=== PATIENT | male | born 1965 | race Caucasian/White ===

== ENCOUNTER 2021-02-09 13:30 | Outpatient (CLI) | payer MEDICARE, SELFPAY ==
--- NOTE | 2021-02-09 13:30 | XR_ITS ---
WS: [id number] PROCEDURE: XR chest 2V* [id number] CLINICAL INFORMATION: SOB COMPARISON: None. FINDINGS: Heart: Normal cardiac silhouette. Sternotomy with mediastinal clips. AVR. Lungs: Elevation left hemidiaphragm with air-fluid level in the stomach.. Mild chronic emphysematous changes. Linear atelectasis/fibrosis left lower lobe. Bones: Normal visualized bony structures. XR/XR chest 2V* [id number] IMPRESSION: 1. Elevation left hemidiaphragm with air-fluid level in the stomach. 2. Mild chronic emphysematous changes. No acute pulmonary infiltrates. 3. Sternotomy with mediastinal clips and aVR.
== END 2021-02-09 13:31 | disposition home or self-care (01) ==
PROVIDERS: Visit Provider Family Medicine
DX: R06.02 Shortness of breath (principal)
CPT/HCPCS: 71046

== ENCOUNTER → 2021-03-24 14:49 | Outpatient (BNVA) | payer MEDICARE, SELFPAY | PROVIDERS: Visit Provider Internal Medicine Cardiovascular Disease | DX: Z01.812 Encounter for preprocedural laboratory examination (principal); Z20.822 Contact with and (suspected) exposure to COVID-19 | CPT/HCPCS: 87635 ==

== ENCOUNTER 2021-03-30 09:18 | Outpatient (CLI) | payer MEDICARE, SELFPAY ==
--- NOTE | 2021-03-30 09:51 | PFTS_ITS ---
Date of Study:03/30/21 Date of Dictation: MECHANICS: Forced vital capacity (FVC) is reduced. Forced expiratory volume in one second (FEV1) is reduced. FEV1/FVC is normal. FLOW VOLUME LOOP: Narrow. LUNG VOLUMES: Total lung capacity (TLC) is reduced. Residual volume (RV) is reduced. DIFFUSING CAPACITY FOR CARBON MONOXIDE: Moderately reduced. INTERPRETATION: The postbronchodilator spirometry is consistent with moderately severe restriction. There is a significant postbronchodilator response. Lung volumes are consistent with moderately severe restrictive lung disease. Gas exchange (DLCO) is moderately reduced. The constellation of findings could be suggestive of interstitial lung disease. MTDD
== END 2021-03-30 09:19 | disposition home or self-care (01) ==
LOC: RT 09:20
PROVIDERS: PCP Family Medicine; Visit Provider Internal Medicine Cardiovascular Disease
DX: R06.00 Dyspnea, unspecified (principal)
CPT/HCPCS: 94060; 94726; 94729; J7611

== ENCOUNTER 2021-04-13 12:55 | Outpatient (CLI) | payer MEDICARE, SELFPAY ==
--- NOTE | 2021-04-13 12:45 | USCV_ITS ---
Felipe Hill Age: 55 Gender: M : 1965 Exam Date: 04/13/2021 13:17 Ordering Phys: Liliane Prajapati DO Technologist: Exam Location: [facility] Indication: HISTORY: PROCEDURES: Left duplex Venous Insufficiency study of the Deep and Superficial systems was carried out according to normal protocol with the patient in supine positon for deep system and dependent position for the superficial system. FINDINGS: All deep veins demonstrated compressibility without evidence of intraluminal thrombus or increased echogenicity. Spectral analysis of Doppler signals demonstrates normal response to compression maneuvers indicating patency without obstruction. Reflux determinations were made with the patient in the dependent position, the weight being on the contralateral leg. Vein measurements and reflux times are listed below were applicable. SIGNIFICANT LT LEG GSAPH INSUFFICIENCY GOOD CANADATE FOR ABLATION. CONCLUSIONS 1. No evidence of DVT in the above-mentioned identifiable veins on the left side. 2. Significant venous reflux of greater than 500 ms were noted at the distal and below-knee greater saphenous vein segments on the left side. These venous segments are measuring 0.38 and 0.45 cm in diameter and at a depth of more than 1 cm from the surface. Dr Constanza Guerra MD [facility] (Electronically Signed) Final Date: 14 April 2021 08:48 S
== END 2021-04-13 12:56 | disposition home or self-care (01) ==
LOC: RAD 13:00
PROVIDERS: PCP Family Medicine; Visit Provider Family Medicine
DX: I83.892 Varicose veins of left lower extremity with other complications (principal)
CPT/HCPCS: 93971

== ENCOUNTER 2021-04-14 12:54 | Outpatient (CLI) | payer MEDICARE, SELFPAY ==
[2021-04-14 14:03] LABS: Alanine Aminotransferase 20 U/L (0-41); Albumin Level 4.4 g/dL (3.5-5.2); Alkaline Phosphatase 71 IU/L (40-130); Anion Gap 10.5 (5-19); Aspartate Amino Transferase 21 U/L (0-40); Blood Urea Nitrogen 17 mg/dL (6-20); Calcium 8.8 mg/dL (8.5-10.5); Carbon Dioxide 28 mmol/L (22-29); Chloride 104 mmol/L (98-107); Globulin 2.4 g/dL (1.3-4.6); Glomerular Filtration Rate 100.7 mL/min (90-130); Glucose 86 mg/dL (65-115); Osmolality Calculated 287 mOsm/kg (285-295); Potassium 4.5 mmol/L (3.5-5.1); Sodium 138 mmol/L (136-145); Total Bilirubin 0.7 mg/dL (0.15-1.2); Total Protein 6.8 g/dL (6.6-8.7)
[2021-04-14 14:16] LABS: Erythrocyte Sedimentation Rate 13 mm/hr (0-10)
[2021-04-15 13:47] LABS: Anti-Double Strand DNA AB <1 IU/mL; Centromere B Antibody <1.0 NEG AI (<1.0 NEG); Cyclic Citrullinated Peptide <16 UNITS; JO-1 Antibody <1.0 NEG AI (<1.0 NEG); SS A Ro Sjogrens Antibody <1.0 NEG AI (<1.0 NEG); SS-B/LA IGG <1.0 NEG AI (<1.0 NEG); Sm/RNP Antibody <1.0 NEG AI (<1.0 NEG); Smith Antibody <1.0 NEG AI (<1.0 NEG)
[2021-04-15 17:39] LABS: Alternaria Alternata (M6) Ige <0.10 kU/L; Alternaria Class 0; Bermuda Class 0; Bermuda Grass (G2) Ige <0.10 kU/L; Cat Dander (E1) Ige <0.10 kU/L; Cat Dander Class 0; Common Ragweed (Short) (W1) Ig <0.10 kU/L; D. Farinae Class 0; Dermatophagoides Class 0; Dermatophagoides Farinae (D2) <0.10 kU/L; Dermatophagoides Pteronyssinus <0.10 kU/L; Dog Dander (E5) Ige <0.10 kU/L; Dog Dander Class 0; Elm (T8) Ige <0.10 kU/L; Elm Class 0; English Plantain (W9) Ige <0.10 kU/L; English Plantain Class 0; House Dust (Greer) (H1) Ige <0.10 kU/L; House Dust (Hollister- Stier) <0.10 kU/L; House Dust Class 0; Immunoglobulin E 17 kU/L (<OR=114); Immunoglobulin E 18 kU/L (<OR=114); Johnson Grass (G10) Ige <0.10 kU/L; Johnson Grass Cl 0; June Grass Class 0; June Grass(Kentucky Blue) (G8) <0.10 kU/L; Lamb'S Quarters (Goose Foot) <0.10 kU/L; Lamb'S Quarters Class 0; Maple (Box Elder) (T1) Ige <0.10 kU/L; Maple Class 0; Meadow Fescue (G4) Ige <0.10 kU/L; Meadow Fescue Class 0; Mucor Racemosus Class 0; Oak (T7) Ige <0.10 kU/L; Oak Class 0; Orchard Grass (Cocksfoot) (G3) <0.10 kU/L; Penicillium Class 0; Penicillium Notatum (M1) Ige <0.10 kU/L; Perennial Rye Grass (G5) Ige <0.10 kU/L; Perennial Rye Grass Class 0; Ragweeed Class 0; Rough Marsh Elder (W16) Ige <0.10 kU/L; Rough Marsh Elder Class 0; Sweet Vernal Class 0; Sweet Vernal Grass (G1) Ige <0.10 kU/L; Timothy Grass (G6) Ige <0.10 kU/L; Timothy Grass Class 0
[2021-04-16 23:02] LABS: Aspergillus Fumigatus, Igg Ab, 16.6 mg/L (<=102)
== END 2021-04-14 12:55 | disposition home or self-care (01) ==
LOC: LAB 12:58
PROVIDERS: PCP Family Medicine; Visit Provider Internal Medicine Pulmonary Disease
DX: J98.4 Other disorders of lung (principal); R06.00 Dyspnea, unspecified; J45.909 Unspecified asthma, uncomplicated
CPT/HCPCS: 36415; 80053; 82785; 85651; 86003; 86140; 86225; 86235; 86431

== ENCOUNTER 2021-04-19 10:37 | Outpatient (CLI) | payer MEDICARE, SELFPAY ==
--- NOTE | 2021-04-19 10:45 | CT_ITS ---
WS: [id number] HIGH-RESOLUTION CT CHEST TECHNIQUE: High-resolution Noncontrast CT of the chest with coronal and sagittal reformatted images. Inspiratory, expiratory, prone imaging CLINICAL INFORMATION: interstitial lung disease COMPARISON: None. DLP: 1824.[address] scans at [facility] use at least one of these dose optimization techniques: automat ed exposure control; mA and/or kV adjustment per patient size (includes targeted exams where dose is matched to clinical indication); or iterative reconstruction. FINDINGS: Elevation left hemidiaphragm. Sternotomy. Prior aVR. Aortic calcification. Mediastinal clips. Normal caliber thoracic aorta. No mediastinal or hilar lymphadenopathy. No axillary lymphadenopathy. Adrenal glands are normal. Surgical clips along the GE junction. Mild chronic emphysematous change. Slight subsegmental atelectasis in the lingula and left lower lobe . No focal consolidation or pleural fluid. A few noncalcified tiny nodules in the right upper lobe an d left lower lobe. These measure approximately 2 to 3 mm. No evidence of interstitial lung disease. N o subpleural honeycombing. No evidence of interstitial fibrosis. Bronchiectasis left lower lobe. No s ignificant air trapping on the expiratory imaging. CT/CT chest wo con [id number] IMPRESSION: 1. Mild chronic emphysematous changes. 2. No evidence of interstitial lung disease. No subpleural honeycombing or int erstitial fibrosis. 3. Slight linear atelectasis left lower lobe. 4. No mediastinal or hilar lymphadenopathy. 5. A few tiny subcentimeter pulmonary nodules described above. Recommend 12 mo nth follow-up.
== END 2021-04-19 10:38 | disposition home or self-care (01) ==
PROVIDERS: PCP Family Medicine; Visit Provider Internal Medicine Pulmonary Disease
DX: J84.9 Interstitial pulmonary disease, unspecified (principal); R91.8 Other nonspecific abnormal finding of lung field; J98.11 Atelectasis
CPT/HCPCS: 71250

== ENCOUNTER 2021-06-09 15:57 | Outpatient (CLI) | payer MEDICARE, SELFPAY ==
--- NOTE | 2021-06-09 16:30 | XR_ITS ---
WS: [id number] HAND LEFT TECHNIQUE: 3 views of the left hand CLINICAL INFORMATION: rule out psoriatric arthritis COMPARISON: None. FINDINGS: Ulna deviation at the fifth MCP joint with flexion contracture deformity fifth DIP. Joint space narro wing fifth DIP. No significant erosive changes. No periarticular erosions. Normal metacarpals. Mild d egenerative narrowing radiocarpal joint. IMPRESSION: 1. Ulnar deviation fifth MCP with swan-neck contracture deformity fifth DIP 2. No significant erosive changes. No periarticular erosions. 3. Mild degenerative narrowing radiocarpal joint.
--- NOTE | 2021-06-09 16:30 | XR_ITS ---
WS: [id number] HAND RIGHT TECHNIQUE: 3 views of the right hand CLINICAL INFORMATION: rule out psoratiatic arthritis COMPARISON: None. FINDINGS: Ulna deviation at the MCP joints. No significant erosive changes. Mild IP joint narrowing f ifth DIP . Mild degenerative narrowing at the radiocarpal joint. Otherwise normal visualized carpal b ones. . XR/XR hand RT min 3V* [id number] IMPRESSION: 1. Ulna deviation at the second through fifth MCP joints. 2. No erosive changes. 3. IP joint narrowing fifth DIP.
== END 2021-06-09 15:58 | disposition home or self-care (01) ==
PROVIDERS: PCP Family Medicine; Visit Provider Internal Medicine Pulmonary Disease
DX: M21.241 Flexion deformity, right finger joints (principal); M21.242 Flexion deformity, left finger joints
CPT/HCPCS: 73130

== ENCOUNTER 2022-02-15 07:49 | Outpatient (CLI) | payer MEDICARE, SELFPAY ==
--- NOTE | 2022-02-15 08:00 | MR_ITS ---
WS: [id number] MRI BRAIN WITHOUT CONTRAST HISTORY: NEW PERSISTENT DAILY HEADACHE COMPARISON: None available. TECHNIQUE: Diffusion imaging, multiplanar T1, T2 and FLAIR imaging obtained. No evidence for acute infarct or hemorrhage. Romero-white matter differentiation is normal. Very minimal atrophy and chronic small vessel ischemic disease. No prior large territory infarct. No hemorrhage. Ventricles and extra-axial spaces are normal. No inferior displacement of cerebellar tonsils. The sella turcica and pituitary gland are unremarkabl e. Dural venous sinuses and [place] demonstrate no abnormality on this unenhanced studies. Paranasal sinuses: Mild diffuse periosteal thickening in all sinuses. No air-fluid levels. Mastoid air cells: Normal. Calvarium and scalp: 10 mm nodule in the RIGHT occipital bone closely follows fluid on all sequences. This is just inferior to the RIGHT transverse sinus. MR/MR head wo con* [id number] IMPRESSION: 1. No acute infarct. 2. Mild atrophy and very minimal small vessel ischemic disease. 3. 10 mm RIGHT occipital bone lesion. This is probably benign. For further janet luation consider CT of the brain as this will better evaluate the bone structur es. 4. No hemorrhage. 5. Mild diffuse sinus mucosal thickening.
--- NOTE | 2022-02-15 08:00 | MR_ITS ---
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 TECHNIQUE: 3-D MR angiography is performed of the [place]. All images are reviewed including source images. Distal vertebral and basilar arteries are intact with no significant stenosis or plaque. RIGHT verteb ral artery is slightly dominant. Posterior cerebral arteries are normal course and caliber. Posterior communicating arteries are both patent although very small. Intracranial portion of the internal carotid arteries are normal course and caliber. No significant a therosclerosis, stenosis or aneurysm identified. Middle and anterior cerebral arteries are both paten t with no significant disease. Anterior communicating artery is also normal. MR/MR angio head wo con [id number] IMPRESSION: 1. No aneurysms or occlusions. 2. Small caliber but patent distal LEFT vertebral artery.
== END 2022-02-15 07:50 | disposition home or self-care (01) ==
LOC: RAD 07:50
PROVIDERS: PCP Family Medicine; Visit Provider Family Medicine
DX: G44.52 New daily persistent headache (NDPH) (principal); G44.83 Primary cough headache; Z79.01 Long term (current) use of anticoagulants; I71.01 Dissection of thoracic aorta; Q87.40 Marfan syndrome, unspecified; M89.9 Disorder of bone, unspecified
CPT/HCPCS: 70544; 70551

== ENCOUNTER 2022-02-24 07:42 | Outpatient (CLI) | payer MEDICARE, SELFPAY ==
--- NOTE | 2022-02-24 08:00 | USCV_ITS ---
Felipe Hill Age: 56 Gender: M : 1965 Exam Date: 02/24/2022 08:03 Ordering Phys: Chris Overton MD Technologist: URI [place] [facility] [place]: Dyspnea on exertion, Assess LV function BP: 134 / 87 HR: 57 Rhythm: Sinus Technical Quality: Suboptimal MEASUREMENTS (Male / Female) Normal Values 2D ECHO LV Diastolic Diameter PLAX 4.7 cm 4.2 - 5.9 / 3.9 - 5.3 cm LV Systolic Diameter PLAX 3.0 cm IVS Diastolic Thickness 0.7 cm 0.6 - 1.0 / 0.6 - 0.9 cm IVS Systolic Thickness 1.0 cm LVPW Diastolic Thickness 0.8 cm 0.6 - 1.0 / 0.6 - 0.9 cm LVPW Systolic Thickness 1.0 cm RV Chamber Size 2.6 cm LVOT Diameter 2.0 cm LV Ejection Fraction 2D Teich 65.2 % LV Ejection Fraction MOD 2C 56.3 % LV Ejection Fraction 2C AL 56.5 % LA Diameter 2.8 cm LA Width 3.1 cm LA Height 3.5 cm RA Width 3.4 cm RA Height 3.5 cm Aorta at Sinotubular Diameter 2.2 cm M-MODE Aortic Annulus Diameter 2.6 cm LA Ao Ratio MM 0.9 MV E Point Septal Separation 0.5 cm DOPPLER AV Peak Velocity 186.0 cm/s LVOT Peak Velocity 132.0 cm/s AV Area Cont Eq vti 2.9 cm squared AV Area Cont Eq pk 2.3 cm squared MV Area PHT 5.0 cm squared Mitral E to A Ratio 1.7 MV E' Velocity 50.5 cm/s Mitral E to MV E' Ratio 11.3 Mitral E to LV E' Lateral Ratio 10.3 Mitral E to LV E' Septal Ratio 12.5 TR Peak Velocity 295.8 cm/s TR Peak Gradient 35.0 mmHg TV Peak E Velocity 53.0 cm/s Right Atrial Pressure 3.0 mmHg Pulmonary Artery Systolic Pressu 38.0 mmHg PV Peak Velocity 93.0 cm/s RV Acceleration Time 0.2 s RV Ejection Time 0.4 s RV AcT/ET 0.5 FINDINGS Left Ventricle Normal left ventricular size and systolic function, EF 61 %. No regional wall motion abnormalities. Right Ventricle The right ventricle is normal in size and function. Right Atrium The right atrium is normal in size. Left Atrium The left atrium is normal in size. Mitral Valve Mild mitral annular calcification. Aortic Valve Thickened aortic valve. Tricuspid Valve Trace tricuspid valve regurgitation. Estimated pulmonary artery peak systolic pressure of 38 mmHg. Pulmonic Valve Trace pulmonary valve regurgitation. Pericardium Normal pericardium without effusion. Aorta Normal ascending aorta dimension. CONCLUSIONS Normal left ventricular size and systolic function, EF 61 %. No regional wall motion abnormalities. Thickened aortic valve. Mild mitral annular calcification. Trace tricuspid valve regurgitation. Estimated pulmonary artery peak systolic pressure of 38 mmHg. Trace pulmonary valve regurgitation. There is no pericardial effusion. There are no intracardiac masses. No previous study is available for comparison. Dr Constanza Guerra MD [facility] (Electronically Signed) Final Date: 25 February 2022 08:46 S
--- NOTE | 2022-02-24 10:47 | PFTS_ITS ---
Date of Study:02/24/22 Date of Dictation: MECHANICS: Forced vital capacity (FVC) is reduced. Forced expiratory volume in one second (FEV1) is reduced. FEV1/FVC is normal. FLOW VOLUME LOOP: Narrow. LUNG VOLUMES: Total lung capacity (TLC) is reduced. Residual volume (RV) is reduced. DIFFUSING CAPACITY FOR CARBON MONOXIDE: Mildly reduced. INTERPRETATION: The postbronchodilator spirometry is consistent with moderate restriction. There is no significant postbronchodilator response. Lung volumes are consistent with moderate restriction. Gas exchange (DLCO) is mildly reduced. MTDD
== END 2022-02-24 07:43 | disposition home or self-care (01) ==
PROVIDERS: PCP Family Medicine; Visit Provider Internal Medicine Pulmonary Disease
DX: R06.00 Dyspnea, unspecified (principal); Z95.2 Presence of prosthetic heart valve; J98.4 Other disorders of lung; I08.3 Combined rheumatic disorders of mitral, aortic and tricuspid valves
CPT/HCPCS: 93306; 94060; 94726; 94729; J7611

== ENCOUNTER → 2022-03-10 10:07 | Outpatient (BNVA) | payer MEDICARE, SELFPAY | PROVIDERS: PCP Family Medicine; Visit Provider Internal Medicine Pulmonary Disease | DX: J45.909 Unspecified asthma, uncomplicated (principal); R94.2 Abnormal results of pulmonary function studies; Q87.40 Marfan syndrome, unspecified; J98.4 Other disorders of lung; J98.6 Disorders of diaphragm; M21.241 Flexion deformity, right finger joints; M21.242 Flexion deformity, left finger joints | CPT/HCPCS: 99214 ==

== ENCOUNTER 2022-03-16 08:31 | Outpatient (CLI) | payer MEDICARE, SELFPAY ==
--- NOTE | 2022-03-16 09:02 | CT_ITS ---
WS: [id number] CT HEAD WITH AND WITHOUT CONTRAST HISTORY: ABNORMAL FINDINGS ON MRI OF BRAIN TECHNIQUE: Noncontrast 2.5 mm axial images obtained from the vertex to the skull base. Additional janel ging performed at 2.5 mm axial images status post IV contrast. Bone and soft tissue windows are revie wed. All CT scans at [facility] use at least one of these dose optimization techniques: autom ated exposure control; mA and/or kV adjustment per patient size (includes targeted exams where dose i s matched to clinical indication); or iterative reconstruction. CONTRAST: Omnipaque 350; 95 mL IV. DLP: 2278.29 mGy.cm COMPARISON: MRI 02/15/2022 No acute intracranial hemorrhage, edema or midline shift. Very mild atrophy and small vessel ischemic disease. Prior lacunar infarct versus perivascular space RIGHT basal ganglia. On the postcontrast images there are no enhancing masses. No vascular malformati ons. Ventricles are normal size. Dural venous sinuses are normally enhancing. Just to the RIGHT of the torcula is an area of low atten uation which extends into the calvarium. There is a lytic area in the calvarium corresponding to the area on the recent MRI. Lytic skull lesion measures 9 mm and is very closely associated with the talavera sverse sinus. There is no significant amount of enhancement identified. No occlusions. Very small and hypoplastic LEFT A1 segment. This may be congenital. LEFT M1 segment is also small caliber but is patent. Paranasal sinuses as visualized: Clear. Mastoid air cells: Clear. Calvarium and scalp: No skull fracture. Again noted is the lytic area with scalloping and destruction of the internal table involving the RIGHT occipital lobe. Closely associated with the transverse sin us. CT/CT head wo/w con [id number] IMPRESSION: 1. No enhancing soft tissue mass associated with the RIGHT occipital lesion de scribed on prior MRI the brain. This is a lytic lesion with interruption the lo ss of the inner table of the RIGHT occipital bone. Closely associated with the transverse sinus. Favor this is probably an arachnoid granulation ectatic has e xtended intracranially or benign venous irwin. These are both benign findings an d probably asymptomatic. 2. Mild atrophy and small vessel ischemic disease. 3. 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
[2022-03-16] MEDS: iohexol 350 mg/mL 100 mL Btl IV (09:31)
== END 2022-03-16 08:32 | disposition home or self-care (01) ==
LOC: RAD 08:39
PROVIDERS: PCP Family Medicine; Visit Provider Family Medicine
DX: R90.89 Other abnormal findings on diagnostic imaging of central nervous system (principal); R93.0 Abnormal findings on diagnostic imaging of skull and head, not elsewhere classified
CPT/HCPCS: 70470

== ENCOUNTER → 2022-06-13 11:15 | Outpatient (BNVA) | payer MEDICARE, SELFPAY | PROVIDERS: PCP Family Medicine; Visit Provider Internal Medicine Pulmonary Disease | DX: J45.909 Unspecified asthma, uncomplicated (principal); R94.2 Abnormal results of pulmonary function studies; Q87.40 Marfan syndrome, unspecified; J98.4 Other disorders of lung; R06.00 Dyspnea, unspecified; J98.6 Disorders of diaphragm; M25.841 Other specified joint disorders, right hand; M25.842 Other specified joint disorders, left hand | CPT/HCPCS: 99214 ==

== ENCOUNTER → 2022-06-17 11:40 | Outpatient (BNVA) | payer MEDICARE, SELFPAY | PROVIDERS: PCP Family Medicine; Visit Provider Internal Medicine | DX: Q87.40 Marfan syndrome, unspecified (principal); J45.909 Unspecified asthma, uncomplicated; R94.2 Abnormal results of pulmonary function studies; J98.4 Other disorders of lung; J98.6 Disorders of diaphragm; I27.20 Pulmonary hypertension, unspecified; Z95.2 Presence of prosthetic heart valve | CPT/HCPCS: 99214 ==

== ENCOUNTER 2022-06-27 07:25 | Outpatient (CLI) | payer MEDICARE, SELFPAY ==
[2022-06-23 13:22] LABS: Eosinophils # 0.2 10^3/uL (0.0-0.8); Eosinophils % 5.8 %; Hematocrit 37.6 % (42.0-52.0); Hemoglobin 12.6 g/dL (11.7-16.6); Lymphocytes # 1.2 10^3/uL (0.8-4.8); Lymphocytes % 28.2 %; Mean Corpuscular HGB Conc 33.5 g/dL (30.0-36.0); Mean Corpuscular Hemoglobin 30.8 pg (28.0-34.0); Mean Corpuscular Volume 91.9 fl (80-94); Mean Platelet Volume 9.3 fL (7.4-10.4); Monocytes # 0.5 10^3/uL (0.2-0.9); Monocytes % 11.2 %; Neutrophils # 2.23 10^3/uL (1.8-7.7); Neutrophils % 54.3 %; Nucleated Red Blood Cells % 0 %; Platelet Count 186 10^3/cmm (130-400); Red Blood Count 4.09 10^6/uL (4.1-5.3); Red Cell Distribution Width 11.3 % (12.1-15.1); White Blood Count 4.1 10^3/uL (4.0-10.0)
[2022-06-23 13:33] LABS: INR 2.27 (0.83-1.21); Prothrombin Time (Patient) 25.4 Seconds (12.0-15.1)
[2022-06-23 13:45] LABS: Anion Gap 10.9 (5-19); Blood Urea Nitrogen 20 mg/dL (6-20); Calcium 8.9 mg/dL (8.5-10.5); Carbon Dioxide 29 mmol/L (22-29); Chloride 104 mmol/L (98-107); Glomerular Filtration Rate 100.4 mL/min (90-130); Glucose 92 mg/dL (65-115); Osmolality Calculated 290 mOsm/kg (285-295); Potassium 4.9 mmol/L (3.5-5.1); Sodium 139 mmol/L (136-145)
[2022-06-27] VITALS (9 sets, daily range): BP systolic 121–135; BP diastolic 53–58; PULSE 53–65; RESP 16–19; TEMP 36.4; O2SAT 97–98; BMI 24.9
[2022-06-27 08:04] LABS: INR 1.67 (0.8-1.2)
--- NOTE | 2022-06-27 08:24 | PM.PROC ---
Procedure Note: Date of procedure: 06/27/22 Pre-procedure diagnosis: Pulmonary hypertension Post-procedure diagnosis: same Procedure: RIGHT HEART CATH: Access was obtained in the right brachial artery. [place] catheter was advanced and pressures were measured. FINDINGS: RA pressure: 13/14/9 mmHg RV pressure: 37/-5/37 mmhg Wedge pressure: 19/22/ 16 mmHg PA pressure: 35/13/23 mmHg TP mmHg Ao sat: 100% PA sat: 74% Cardiac output by Haydee: 6.26 Cardiac index by Haydee: 2.9 PVR: 1.14 units Conclusion Mild pulmonary hypertension Borderline elevated left-sided cardiac pressures Complications: None Condition: stable Disposition: same day (Discharged home) Coding Level of Care Code [facility] [employer] [facility] [employer] [facility] Agent for Jayden Miller
[2022-06-27 10:07] LABS: ABG PCO2 45.2 mmHg (35-45); ABG PH Result 7.39 (7.35-7.45); Arterial Blood Gas Hematocrit 38.6 % (42-52); Base Excess ABG 1.5 mmol/L (-2.0-2.0); Blood Gas Allen Test Pos; Blood Gas Sample Type Arterial; PO2 ABG 39.7 mmHg (80.0-100.0)
[2022-06-27 10:08] LABS: Oxygen Device ROOM AIR
[2022-06-27 11:13] LABS: Blood Gas Operator Identificat ED
--- NOTE | 2022-06-27 11:44 | W.PM.OPSUD ---
Surgery/Procedure H&P Update DATE OF PROCEDURE: June 27, 2022 DATE H&P PERFORMED: 06/17/22 H&P UPDATE INFORMATION: I have reviewed H&P completed within last 30 days, I have examined patient prior to procedure and No changes to prior documentation PREOP DIAGNOSIS: Pulmonary hypertension PRIMARY INDICATION FOR PROCEDURE: Pulmonary hypertension PLANNED PROCEDURE: Operation Date: 06/27/22 08:30 Proposed Procedures p Cardiac Catheterization 90653 R06.00 I27.20(Right) - Quang Bagley M.D PATIENT REASSESSED PRIOR TO SEDATION, WITH NO CHANGE NOTED: Yes PHYSICAL EXAM: alert, oriented x 3, clear to auscultation bilaterally and regular rate & rhythm AIRWAY EVAL/ANESTHESIA PLAN: ASA III, Local Anesthesia, Risks, benefits & alternatives of sedation and/or procedure discussed and Patient agrees to continue as planned ADDITIONAL INFORMATION: Moderate sedation
== END 2022-06-27 12:21 | disposition home or self-care (01) ==
PROVIDERS: PCP Family Medicine; Visit Provider Internal Medicine
DX: I27.20 Pulmonary hypertension, unspecified (principal); Z79.01 Long term (current) use of anticoagulants; J45.909 Unspecified asthma, uncomplicated; R94.2 Abnormal results of pulmonary function studies; Q87.40 Marfan syndrome, unspecified; J98.4 Other disorders of lung; R06.00 Dyspnea, unspecified; J98.6 Disorders of diaphragm
CPT/HCPCS: 36415; 36600; 80048; 82803; 85025; 85610; 93451; 99152; 99153; C1751; C1769; C1894; J2250; J3010; J7030

== ENCOUNTER → 2022-07-04 13:03 | Outpatient (BNVA) | payer MEDICARE, SELFPAY | PROVIDERS: PCP Family Medicine; Visit Provider Nurse Practitioner Family | DX: I27.20 Pulmonary hypertension, unspecified (principal) | CPT/HCPCS: 99213 ==

== ENCOUNTER → 2022-07-11 09:55 | Outpatient (BNVA) | payer MEDICARE, SELFPAY | PROVIDERS: PCP Family Medicine; Visit Provider Internal Medicine Pulmonary Disease | DX: R06.00 Dyspnea, unspecified (principal); J45.909 Unspecified asthma, uncomplicated; R94.2 Abnormal results of pulmonary function studies; Q87.40 Marfan syndrome, unspecified; J98.4 Other disorders of lung; J98.6 Disorders of diaphragm | CPT/HCPCS: 94626; 99214 ==

== ENCOUNTER 2022-07-14 11:00 | Outpatient (RCR) | payer MEDICARE, SELFPAY | END 2022-08-12 23:59 | disposition home or self-care (01) | LOC: PULRHB 11:00 | PROVIDERS: PCP Family Medicine; Visit Provider Internal Medicine Pulmonary Disease | DX: R06.00 Dyspnea, unspecified (principal) | CPT/HCPCS: 94626 ==

== ENCOUNTER → 2022-08-01 13:28 | Outpatient (BNVA) | payer MEDICARE, SELFPAY | PROVIDERS: PCP Family Medicine; Visit Provider Podiatrist Foot & Ankle Surgery | DX: M20.42 Other hammer toe(s) (acquired), left foot (principal); M20.41 Other hammer toe(s) (acquired), right foot; M20.12 Hallux valgus (acquired), left foot; M20.11 Hallux valgus (acquired), right foot; B35.1 Tinea unguium; M79.671 Pain in right foot; M79.672 Pain in left foot | CPT/HCPCS: 73630; 99203 ==

== ENCOUNTER 2022-08-13 06:00 | Outpatient (RCR) | payer MEDICARE, SELFPAY | END 2022-09-12 23:59 | disposition home or self-care (01) | LOC: PULRHB 06:00 | PROVIDERS: PCP Family Medicine; Visit Provider Internal Medicine Pulmonary Disease | DX: R06.00 Dyspnea, unspecified (principal) | CPT/HCPCS: 71250; 94626 ==

== ENCOUNTER 2022-08-15 14:41 | Outpatient (CLI) | payer MEDICARE, SELFPAY ==
--- NOTE | 2022-08-15 14:48 | CT_ITS ---
WS: [id number] CT CHEST WITHOUT INTRAVENOUS CONTRAST HISTORY: f/u lung nodules TECHNIQUE: Contiguous 5 mm axial imaging performed on the thorax. Coronal and sagittal reformats are submitted. All CT scans at [facility] use at least one of these dose optimization techniques: automated exposure control; mA and/or kV adjustment per patient size (includes targeted exams where dose is matched to clinical indication); or iterative reconstruction. CONTRAST: None DLP: 834.45 mGy.cm COMPARISON: 04/19/2021 Lungs and central airway: No increase in size of the 2 to 3 mm pulmonary nodules described on 1. Partial atelectasis LEFT lower lobe with elevation of the diaphragm. No pneumonia. Pleura: Normal. No pleural effusion. Heart and pericardium: Mild cardiomegaly. No pericardial effusion. Mediastinum and carmen: Prior CABG. Numerous surgical sutures surround the descending aorta. History of aortic dissection. Vessels: Atherosclerotic plaque within the thoracic aorta. Mild tortuosity and ectasia. Chest wall and lower neck: Prior CABG. Upper abdomen: Atherosclerosis continues into the upper abdomen. Osseous structures: No destructive process. CT/CT chest wo con [id number] IMPRESSION: 1. No interval change in the 2 to 3 mm bilateral pulmonary nodules since 021. 2. Prior CABG. 3. Partial atelectasis LEFT lower lobe with mild elevation of the diaphragm, u nchanged.
== END 2022-08-15 14:42 | disposition home or self-care (01) ==
LOC: RAD 14:41
PROVIDERS: PCP Family Medicine; Visit Provider Internal Medicine Pulmonary Disease
DX: R91.1 Solitary pulmonary nodule (principal); J98.11 Atelectasis; Z95.1 Presence of aortocoronary bypass graft
CPT/HCPCS: 71250

== ENCOUNTER 2022-09-13 06:00 | Outpatient (RCR) | payer MEDICARE, SELFPAY | END 2022-10-12 23:59 | disposition home or self-care (01) | LOC: PULRHB 06:00 | PROVIDERS: PCP Family Medicine; Visit Provider Internal Medicine Pulmonary Disease | DX: U09.9 Post COVID-19 condition, unspecified (principal); M20.42 Other hammer toe(s) (acquired), left foot; M20.41 Other hammer toe(s) (acquired), right foot; M20.12 Hallux valgus (acquired), left foot; M20.11 Hallux valgus (acquired), right foot; B35.1 Tinea unguium | CPT/HCPCS: 94626; 99214 ==

== ENCOUNTER → 2022-09-16 09:50 | Outpatient (BNVA) | payer MEDICARE, SELFPAY | PROVIDERS: PCP Family Medicine; Visit Provider Internal Medicine Cardiovascular Disease | DX: I71.00 Dissection of unspecified site of aorta (principal); Z95.2 Presence of prosthetic heart valve; Z79.01 Long term (current) use of anticoagulants; Z98.890 Other specified postprocedural states; R06.09 Other forms of dyspnea; J45.909 Unspecified asthma, uncomplicated; R94.2 Abnormal results of pulmonary function studies; Q87.40 Marfan syndrome, unspecified; J98.4 Other disorders of lung; J98.6 Disorders of diaphragm; G47.19 Other hypersomnia; M19.041 Primary osteoarthritis, right hand; M19.042 Primary osteoarthritis, left hand; I27.20 Pulmonary hypertension, unspecified | CPT/HCPCS: 99213; 99214 ==

== ENCOUNTER 2022-09-28 12:00 | Outpatient (CLI) | payer MEDICARE, SELFPAY | END 2022-09-28 12:01 | disposition home or self-care (01) | LOC: SLEEP 10-03 08:31 | PROVIDERS: PCP Family Medicine; Visit Provider Internal Medicine Pulmonary Disease | DX: G47.33 Obstructive sleep apnea (adult) (pediatric) (principal); R06.00 Dyspnea, unspecified; Z95.2 Presence of prosthetic heart valve; J98.4 Other disorders of lung | CPT/HCPCS: G0399 ==

== ENCOUNTER → 2022-10-20 10:54 | Outpatient (BNVA) | payer MEDICARE, SELFPAY | PROVIDERS: PCP Family Medicine; Visit Provider Podiatrist Foot & Ankle Surgery | DX: M20.42 Other hammer toe(s) (acquired), left foot (principal); M20.41 Other hammer toe(s) (acquired), right foot; M20.12 Hallux valgus (acquired), left foot; M20.11 Hallux valgus (acquired), right foot; B35.1 Tinea unguium | CPT/HCPCS: 99213 ==

== ENCOUNTER → 2022-11-25 09:55 | Outpatient (BNVA) | payer MEDICARE, SELFPAY | PROVIDERS: PCP Family Medicine; Visit Provider Podiatrist Foot & Ankle Surgery | DX: M20.42 Other hammer toe(s) (acquired), left foot (principal); M20.41 Other hammer toe(s) (acquired), right foot; M20.12 Hallux valgus (acquired), left foot; M20.11 Hallux valgus (acquired), right foot; B35.1 Tinea unguium | CPT/HCPCS: 99213 ==

== ENCOUNTER 2022-11-30 20:00 | Outpatient (CLI) | payer MEDICARE, SELFPAY | END 2022-11-30 20:01 | disposition home or self-care (01) | LOC: SLEEP 12-01 07:18 | PROVIDERS: PCP Family Medicine; Visit Provider Internal Medicine Pulmonary Disease | DX: G47.33 Obstructive sleep apnea (adult) (pediatric) (principal) | CPT/HCPCS: 95811 ==

== ENCOUNTER → 2022-12-19 12:55 | Outpatient (BNVA) | payer MEDICARE, SELFPAY | PROVIDERS: PCP Family Medicine; Visit Provider Internal Medicine Cardiovascular Disease | DX: Z95.2 Presence of prosthetic heart valve (principal); I71.00 Dissection of unspecified site of aorta; Q87.40 Marfan syndrome, unspecified; Z79.01 Long term (current) use of anticoagulants | CPT/HCPCS: 99213 ==

== ENCOUNTER → 2022-12-30 11:09 | Outpatient (BNVA) | payer MEDICARE, SELFPAY | PROVIDERS: PCP Family Medicine; Visit Provider Podiatrist Foot & Ankle Surgery | DX: M20.42 Other hammer toe(s) (acquired), left foot (principal); M20.41 Other hammer toe(s) (acquired), right foot; M20.12 Hallux valgus (acquired), left foot; M20.11 Hallux valgus (acquired), right foot; B35.1 Tinea unguium | CPT/HCPCS: 99214 ==

== ENCOUNTER 2023-01-05 06:37 | Day surgery (SDC) | payer MEDICARE, SELFPAY ==
[2023-01-04 09:33] VITALS: BMI 23.7
[2023-01-05] VITALS (9 sets, daily range): BP systolic 101–142; BP diastolic 54–65; PULSE 63–82; RESP 15–19; TEMP 36.6–37.5; O2SAT 93–96
[2023-01-05] MEDS: gabapentin 300 mg Capsule PO (07:15)
[2023-01-05] MEDS: sodium chloride 0.9% 1,000 ML 30 ML IV (07:16)
[2023-01-05] MEDS: acetaminophen 1,000 MG/100 ML PIGGYBACK 400 MG IV (07:16)
--- NOTE | 2023-01-05 07:54 | P.HPUD_ITS ---
Surgery/Procedure H&P Update DATE OF PROCEDURE: January 05, 2023 DATE H&P PERFORMED: 12/30/22 CHANGES TO PREVIOUS DOCUMENTATION: No changes PREOP DIAGNOSIS: Right foot hallux valgus and hammertoes 2-5 PLANNED PROCEDURE: Operation Date: 01/05/23 08:00 Proposed Procedures s Mele Osteotomy 08739-51,s M20.11,M20.5X1,M20.41(Right) - Laurent Anderson DPM p Right flexor digitorum longus to extensor digitorum longus tendon transfer 2nd,3rd,4th digit CPT 69175-66,06786-00,(Right) - Laurent Anderson DPM s Right 2nd,3rd,4th PIPJ arthrodesis CPT 37033-22(Right) - Laurent Anderson DPM s Right 5th PIPJ arthroplasty CPT 01944-02(Right) - Laurent Anderson DPM
--- NOTE | 2023-01-05 07:54 | W.PM.OPSUD ---
Surgery/Procedure H&P Update DATE OF PROCEDURE: January 05, 2023 DATE H&P PERFORMED: 12/30/22 CHANGES TO PREVIOUS DOCUMENTATION: No changes PREOP DIAGNOSIS: Right foot hallux valgus and hammertoes 2-5 PLANNED PROCEDURE: Operation Date: 01/05/23 08:00 Proposed Procedures s Mele Osteotomy 76775-16,s M20.11,M20.5X1,M20.41(Right) - Laurent Anderson DPM p Right flexor digitorum longus to extensor digitorum longus tendon transfer 2nd,3rd,4th digit CPT 97137-08,94051-83,(Right) - Laurent Anderson DPM s Right 2nd,3rd,4th PIPJ arthrodesis CPT 54905-73(Right) - Laurent Anderson DPM s Right 5th PIPJ arthroplasty CPT 06746-18(Right) - Laurent Anderson DPM
[2023-01-05] MEDS: clindamycin 600 MG/50 ML PREMIX 100 MG IV (08:07)
--- NOTE | 2023-01-05 08:12 | ANES.PREANE2 ---
Pre-Anesthetic Assessment Height/Weight: Height 1.93 m Weight 88.451 kg Temp Pulse Resp BP Pulse Ox O2 Del Method 97.8 F 63 17 142/65 96 01/05/23 07:05 01/05/23 07:05 01/05/23 07:05 01/05/23 07:05 01/05/23 07:05 01/05/23 07:06 Preop Diagnosis: Right foot hallux valgus and hammertoes 2-5 Operation Date: 01/05/23 08:00 Proposed Procedures s Mele Osteotomy 52587-97,s M20.11,M20.5X1,M20.41(Right) - Laurent Anderson DPM p Right flexor digitorum longus to extensor digitorum longus tendon transfer 2nd,3rd,4th digit CPT 92654-38,66992-38,(Right) - Laurent Anderson DPM s Right 2nd,3rd,4th PIPJ arthrodesis CPT 18991-80(Right) - Laurent Anderson DPM s Right 5th PIPJ arthroplasty CPT 60270-76(Right) - Laurent Anderson DPM Familial anesthetic complications: None Was Beta Melchor taken within 24 hours: Yes Was Clonidine taken within 24 hours: N/A Last intake: Intake Last Liquid Date 01/04/23 Last Liquid Time 22:30 Last Solid Date 01/04/23 Last Solid Time 18:00 Social No alcohol and No tobacco Exam alert, oriented x 3, clear to auscultation bilaterally and regular rate & rhythm Airway Mallampati: Class III Dentition: full Comments: Comments: vocal cord paralysis d/t aortic dissection surgery --> has vocal cord implant. Possesses note from facility which states that a 6.0 tube or smaller should be used without a stylet in as atraumatic fashion as able if requires intubation Pulmonary Asthma and Exertional Dyspnea (Diaphragmatic paralysis) CV/HEM Hypertension AVR s/p replacement and aortic dissection with graft Metabolic Hyperlipidemia and Thyroid Disease graves disease [facility] [place]/robert marfan's Anesthetic Plan ASA status: 3 Anesthesia: General and Regional (specify below) Risk of > 500 ml blood loss (7ml/kg in children): No Medications/Allergies Home Medications Medication Instructions Recorded Confirmed Last Taken Type aspirin 81 mg tablet,delayed 81 mg PO DAILY 02/05/21 01/04/23 01/03/23 History release atorvastatin 20 mg tablet 20 mg PO DAILY 02/05/21 01/05/23 01/04/23 19:00 History citalopram 20 mg tablet 20 mg PO DAILY 02/05/21 01/05/23 01/04/23 08:00 History warfarin 5 mg tablet 5 mg PO DAILY 02/05/21 01/04/23 12/31/22 History olmesartan 40 mg tablet 40 mg PO DAILY #30 tabs 02/08/21 01/05/23 01/04/23 08:00 Rx trazodone 50 mg tablet 150 mg PO DAILY 03/12/21 01/05/23 01/04/23 18:00 History levalbuterol tartrate 45 2 inh inhalation Q6H PRN shortness 12/21/21 01/04/23 Unknown Rx mcg/actuation aerosol inhaler of breath or wheezing #15 grams (Xopenex HFA) ascorbic acid (vitamin C) 1,000 mg PO DAILY 03/10/22 01/05/23 01/04/23 History cholecalciferol (vitamin D3) 50 50 mcg PO DAILY 03/10/22 01/05/23 01/04/23 08:00 History mcg (2,000 unit) capsule carvedilol 12.5 mg tablet 12.5 mg PO BID 11/25/22 01/05/23 01/05/23 06:00 History hydrocodone 5 mg-acetaminophen 325 1 tab PO Q6H PRN pain #28 tabs 01/05/23 Unknown Rx mg tablet Allergies Allergy/AdvReac Type Severity Reaction Status Date / Time ciprofloxacin [From Cipro] Allergy due to Verified 01/05/23 07:00 heart issues levofloxacin [From Levaquin] Allergy heart Verified 01/05/23 07:00 issues moxifloxacin [From Avelox] Allergy heart Verified 01/05/23 07:00 issues ofloxacin Allergy heart Verified 01/05/23 07:00 issues tizanidine Allergy ADR-Blurry Verified 01/05/23 07:00 Vision amlodipine AdvReac Mild swelling Verified 01/05/23 07:00 Penicillins AdvReac Mild rash Verified 01/05/23 07:00 Quinolones AdvReac Mild due to Verified 01/05/23 07:00 heart issues Current Medications Generic Name Dose Route Start Last Admin Trade Name Freq PRN Reason Stop Dose Admin Sodium Chloride 1,000 mls @ 30 mls/hr 01/05/23 07:00 01/05/23 07:16 Sodium Chloride 0.9% IV 01/06/23 06:59 30 mls/hr .Q24H TYESHA Administration PFSH Anesthesia Medical History Dissection, aorta Graves disease Insomnia Major depression Marfans syndrome Warfarin anticoagulation Surgical History Aortic valve replaced H/O eye surgery History of thyroplasty Social History Smoking and tobacco status: never smoked Second hand smoke exposure: No Smoking risk assessment/counseling performed?: Yes Alcohol intake: current Alcohol type: beer Desire information about alcohol rehabilitation?: No Desire information about substance/drug rehabilitation?: No Lives independently: Yes Household members: spouse Marital status: service: No Current occupational status: disabled Pets and animals: Yes History of recent travel: No Current gender identity: Male Data Anesthesia Cardiac Studies: Echocardiogram 02/24/22
--- NOTE | 2023-01-05 08:14 | ANES.PROC ---
Anesthesia Procedures Procedure/Date: 01/05/23 Nerve Block ^: Nerve Block 1: Main Anesthesia: general anesthesia Time Out Performed: Yes Consent: requested by attending/covering physician, from patient, from other, risks and benefits reviewed and patient agrees to proceed Nerve block location: popliteal (R) Anesthesia monitors applied: pulse oximetry, EKG, BP cuff and oxygen Nerve block position: semi sitting Anesthetic Used: ropivicaine 0.5% (30 ml) and with decadron (4 mg) Ultrasound used to: recognize landmarks Nerve Stimulator Used?: No Interscalene/Femoral BLK: 4 stimuplex 21 g needle used for position and inplane approach and visualize local anesthetic spread Injection: neg aspiration of heme Patient Tolerated Procedure: well and no complications Complications: none
[2023-01-05] MEDS: HYDROcodone-acetaminophen 5-325 mg Tablet 1 TAB PO (12:20)
--- NOTE | 2023-01-05 12:40 | SUR.PHASEII ---
Patient was concerned about when to restart warfarin and was having some bleed through on dressing to foot. Called OR to confirm when to start medicine back and was told to reinforce dressing with 4x4.
--- NOTE | 2023-01-05 13:27 | P.OP_ITS ---
Operative Report Date of procedure: January 05, 2023 Pre-op diagnosis: Preop Diagnosis Right foot hallux valgus and hammertoes 2-5 Post-op diagnosis: Same Post-op findings: Right foot hallux valgus deformity with rigid hammertoe contractures of lesser digits Procedure done: 1. Right foot Lapidus bunionectomy CPT 94174 2. Right foot Mele osteotomy CPT 83437 3. Right foot second digit proximal interphalangeal joint arthrodesis CPT 21240 4. Right foot third digit proximal interphalangeal joint arthrodesis CPT 74289 5. Right foot fourth digit proximal interphalangeal joint arthrodesis CPT 62821 6. Right foot fifth digit proximal interphalangeal joint arthroplasty CPT 41881 Implants: One 4.0 short threaded cannulated headed screw from [place] 28, 1 Lapidus plate with corresponding 3.5 locking and nonlocking screws. Three 0.045 K wires Specimens removed/disposition: None Pathology: None Surgeon: Dr. Laurent Anderson D.P.M. Estimated blood loss: 50 cc 118 minutes Complications: None Findings: See above Procedure: Patient is a 57-year-old male that has a history of right foot hallux valgus deformity with lesser digit hammertoe contractures. The patient has had the aforementioned chief complaint for some time. Conservative treatment measures have been attempted and the patient has opted for surgical intervention at this time. A lengthy discussion regarding the procedure, including risks and complications has been had with the patient and is noted in the recent clinic note. Written and verbal consent have been obtained. All patient questions have been answered to the patient?s satisfaction. No written or verbal guarantees have been given or implied. The patient has been NPO since midnight. The history has been reviewed and the history and physical is current. The signed consent was confirmed and placed in the patient chart. Patient imaging has been reviewed and is consistent with the diagnosis. Under mild sedation, the patient was brought into the operating room and placed on the table in the supine position. IV antibiotics were given by the anesthesia team as preoperative surgical prophylaxis. General sedation was then performed by the anesthesia team. A popliteal block was performed by the anesthesia department. A pneumatic tourniquet was then placed about the right ankle. The operative extremity was then prepped and draped in the usual fashion. The extremity was then elevated and exsanguinated before the tourniquet was inflated to 250 mmHg. After inflation, the following procedure was then performed. Attention was directed to the right foot where a 5 cm incision was made over the first tarsometatarsal joint. Dissection was carried down through subcutaneous and superficial fascia to the level of the joint capsule. This was incised to expose the underlying first tarsometatarsal joint. An osteotome was used to free up the plantar ligaments of this joint capsule. Dissection was carried out to allow for adequate exposure of the joint. Next, a intermittent distractor was used to open up the first tarsometatarsal joint. Using a combination of curette and osteotome the articular cartilage was denuded from the joint. The site was then irrigated with sterile saline. A fenestration drill bit was then used to prep the articular surfaces for arthrodesis. The first metatarsal was reduced into the appropriate position on C-arm imaging forwarded to prove fixation removed 2 mm K wires. Good position of the first metatarsal was visualized on C-arm imaging as well as clinically. Next a 4.0 cannulated short thread headed screw was inserted across the arthrodesis site. Good compression was noted and good positioning was noted. Next a medial Lapidus plate was applied to the medial first tarsometatarsal joint before being drilled and filled with a combination of 3.5 mm locking and nonlocking screws. Next, attention was directed to the distal aspect of the first metatarsal where a 4 cm incision was made over the first metatarsophalangeal joint. Dissection was carried down through subcutaneous and superficial fascia. The first metatarsophalangeal joint capsule was opened to expose the prominent medial eminence. This was then resected with a sagittal bone saw. Attention was then directed to the proximal phalanx where an Mele osteotomy was performed in standard fashion. Next a 2.0 short thread headed screw was inserted across the osteotomy site. Good compression of the osteotomy site was noted clinically as well as on C arm. Next, attention was directed to the right foot second digit where a 3 cm incision was made over the dorsal aspect of the distal interphalangeal joint and proximal interphalangeal joints. Dissection was carried down through subcutaneous and superficial fascia to the level of the joints. The distal interphalangeal joint was noted to have extensive contracture and was exposed. The head of the intermediate phalanx was removed with a rongeur. The second it was then noted to sit in a more rectus position. The articular cartilage from the base of the distal phalanx was removed with a rongeur. Attention was then directed to the third and fourth digits of the right foot where a similar incision was made over the dorsal aspect of the digits proximal interphalangeal joint and distal interphalangeal joints. The proximal interphalangeal joints were opened up on the third and fourth digits and the head of the proximal phalanges were removed with a rongeur and the bases of the intermediate phalanges were denuded of cartilage using a rongeur. Next, 0.045 K wires were driven into digits 2, 3, 4 across the arthrodesis sites to maintain positioning. Attention was then directed to the right fifth digit where a elliptical incision was made over the proximal interphalangeal joint. Dissection was carried down through subcutaneous superficial fascia. The extensor tendon was transected and the at the proximal phalanx was visualized. It was then cut with a sagittal saw and removed from the operative field. The incision sites were then irrigated with copious amounts of sterile saline before attention was directed to closure. The tourniquet was let down and good hyperemic response was noted to all digits of the right foot. Any bleeders were cauterized as necessary. Hemostasis was achieved. Deep tissue was closed with 3-0 Vicryl followed by subcuticular closure with 4-0 Vicryl and skin closed with 4-0 nylon in a combination of simple interrupted and running and articular fashion suture. The tips of the wires of toes 2 through 4 were bent and cut and a bigtincan ball was placed on the end. The incision sites were dressed with Xeroform, 4 x 4 gauze, Kerlix and the patient was placed in a well-padded below the knee posterior splint. The patient tolerated the procedure and anesthesia well and without complication. The patient was transported from the operating room to the recovery room with vital signs stable and vascular status intact to all digits of the right foot. The patient was given both written and verbal instructions to remain nonweightbearing to the operative extremity, to keep dressings/splint clean, dry and intact and to take pain medication as directed. The patient will follow-up in the outpatient setting at their scheduled appointment. The patient was discharged with my personal number and was instructed to call if any questions or issues should arise. They were discharged home once anesthesia criteria was met.
--- NOTE | 2023-01-05 13:32 | ANE.PACU2 ---
Inpatient post-anesthesia follow up: Airway intact: Yes Vital signs: Temperature 98.9 F Pulse Rate 82 Respiratory Rate 17 Blood Pressure 101/64 Pulse Oximetry 95 Oxygen Delivery Me thod Room Air Oxygen Flow Rate Fraction of Inspir ed Oxygen Hydration adequate: Yes Nausea and vomiting: No Pain level: 1 Mental status: Baseline
== END 2023-01-05 12:35 | disposition home or self-care (01) ==
PROVIDERS: PCP Family Medicine; Visit Provider Podiatrist Foot & Ankle Surgery
PROC: (CPT 28298; principal; 2023-01-05 08:00)
PROC: (CPT 28285; 2023-01-05 08:00)
PROC: (CPT 28740; 2023-01-05 08:00)
PROC: (CPT 28285; 2023-01-05 08:00)
DX: M20.11 Hallux valgus (acquired), right foot (principal); M20.41 Other hammer toe(s) (acquired), right foot; I10 Essential (primary) hypertension; E78.5 Hyperlipidemia, unspecified; Z79.01 Long term (current) use of anticoagulants; Z79.82 Long term (current) use of aspirin
CPT/HCPCS: 28285 ×4; 28299; C1713; J0131; J0330; J1100; J2370; J2405; J2704; J2795; J3010; J3490; J7030

== ENCOUNTER → 2023-01-20 13:16 | Outpatient (BNVA) | payer MEDICARE, SELFPAY | PROVIDERS: PCP Family Medicine; Visit Provider Podiatrist Foot & Ankle Surgery | DX: M20.42 Other hammer toe(s) (acquired), left foot (principal); M20.41 Other hammer toe(s) (acquired), right foot; M20.12 Hallux valgus (acquired), left foot; M20.11 Hallux valgus (acquired), right foot; B35.1 Tinea unguium | CPT/HCPCS: 73630; 99024 ==

== ENCOUNTER → 2023-02-02 13:27 | Outpatient (BNVA) | payer MEDICARE, SELFPAY | PROVIDERS: PCP Family Medicine; Visit Provider Podiatrist Foot & Ankle Surgery | DX: M20.12 Hallux valgus (acquired), left foot (principal); M20.42 Other hammer toe(s) (acquired), left foot; M20.11 Hallux valgus (acquired), right foot; M20.41 Other hammer toe(s) (acquired), right foot | CPT/HCPCS: 73630 ==

== ENCOUNTER 2023-02-02 15:54 | Outpatient (CLI) | payer MEDICARE, SELFPAY | END 2023-02-02 15:55 | disposition home or self-care (01) | LOC: SPT 15:56 | PROVIDERS: PCP Family Medicine; Visit Provider Podiatrist Foot & Ankle Surgery | DX: Z47.89 Encounter for other orthopedic aftercare (principal) | CPT/HCPCS: 97760; 99024; L4361 ==

== ENCOUNTER → 2023-02-17 12:59 | Outpatient (BNVA) | payer MEDICARE, SELFPAY | PROVIDERS: PCP Family Medicine; Visit Provider Podiatrist Foot & Ankle Surgery | DX: M20.11 Hallux valgus (acquired), right foot (principal); Z98.890 Other specified postprocedural states | CPT/HCPCS: 73630; 99024 ==

== ENCOUNTER → 2023-03-03 12:58 | Outpatient (BNVA) | payer MEDICARE, SELFPAY | PROVIDERS: PCP Family Medicine; Visit Provider Podiatrist Foot & Ankle Surgery | DX: Q87.40 Marfan syndrome, unspecified (principal); Z79.01 Long term (current) use of anticoagulants; B35.1 Tinea unguium; R60.9 Edema, unspecified | CPT/HCPCS: 99024 ==

== ENCOUNTER → 2023-03-17 10:05 | Outpatient (BNVA) | payer MEDICARE, SELFPAY | PROVIDERS: PCP Family Medicine; Visit Provider Internal Medicine | DX: J45.909 Unspecified asthma, uncomplicated (principal); R94.2 Abnormal results of pulmonary function studies; Q87.40 Marfan syndrome, unspecified; J98.4 Other disorders of lung; R06.00 Dyspnea, unspecified; J98.6 Disorders of diaphragm; I27.20 Pulmonary hypertension, unspecified; Z79.82 Long term (current) use of aspirin | CPT/HCPCS: 99214 ==

== ENCOUNTER → 2023-05-03 16:11 | Outpatient (BNVA) | payer MEDICARE, SELFPAY | PROVIDERS: PCP Family Medicine; Visit Provider Podiatrist Foot & Ankle Surgery | DX: B35.1 Tinea unguium (principal); Q87.40 Marfan syndrome, unspecified; Z79.01 Long term (current) use of anticoagulants; R60.9 Edema, unspecified | CPT/HCPCS: 80053; 99213 ==

== ENCOUNTER → 2023-06-14 13:46 | Outpatient (BNVA) | payer MEDICARE, SELFPAY | PROVIDERS: PCP Family Medicine; Visit Provider Podiatrist Foot & Ankle Surgery | DX: B35.1 Tinea unguium (principal); Z79.01 Long term (current) use of anticoagulants | CPT/HCPCS: 36415; 80053; 99213 ==

== ENCOUNTER 2023-09-27 11:15 | Outpatient (CLI) | payer MEDICARE, SELFPAY | END 2023-09-27 11:16 | disposition home or self-care (01) | LOC: SPT 11:16 | PROVIDERS: PCP Family Medicine; Visit Provider Podiatrist Foot & Ankle Surgery | DX: Z46.89 Encounter for fitting and adjustment of other specified devices (principal); M20.11 Hallux valgus (acquired), right foot | CPT/HCPCS: 97760; 99213; L3100 ==

== ENCOUNTER → 2023-11-17 10:26 | Outpatient (BNVA) | payer MEDICARE, SELFPAY | PROVIDERS: PCP Family Medicine; Visit Provider Internal Medicine Pulmonary Disease | DX: J45.998 Other asthma (principal); R94.2 Abnormal results of pulmonary function studies; Q87.40 Marfan syndrome, unspecified; J98.4 Other disorders of lung; J98.6 Disorders of diaphragm; G47.19 Other hypersomnia; G47.33 Obstructive sleep apnea (adult) (pediatric); I27.20 Pulmonary hypertension, unspecified; R91.8 Other nonspecific abnormal finding of lung field; Z91.198 Patient's noncompliance with other medical treatment and regimen for other reason | CPT/HCPCS: 99214 ==

== ENCOUNTER → 2023-12-15 08:47 | Outpatient (BNVA) | payer MEDICARE, SELFPAY | PROVIDERS: PCP Family Medicine; Visit Provider Nurse Practitioner Family | DX: Z95.2 Presence of prosthetic heart valve (principal); I71.00 Dissection of unspecified site of aorta | CPT/HCPCS: 99214 ==

== ENCOUNTER 2024-01-31 20:00 | Outpatient (CLI) | payer MEDICARE, SELFPAY | END 2024-01-31 20:01 | disposition home or self-care (01) | LOC: SLEEP 02-01 05:56 | PROVIDERS: PCP Family Medicine; Visit Provider Anesthesiology Pain Medicine | DX: G47.33 Obstructive sleep apnea (adult) (pediatric) (principal) | CPT/HCPCS: 95810 ==

== ENCOUNTER → 2024-02-12 14:16 | Outpatient (BNVA) | payer MEDICARE, SELFPAY | PROVIDERS: PCP Family Medicine; Visit Provider Podiatrist Foot & Ankle Surgery | DX: Z98.890 Other specified postprocedural states (principal); B35.1 Tinea unguium; Z79.01 Long term (current) use of anticoagulants | CPT/HCPCS: 99213 ==

== ENCOUNTER → 2024-06-19 10:30 | Outpatient (BNVA) | payer MEDICARE, SELFPAY | PROVIDERS: PCP Family Medicine; Visit Provider Internal Medicine Critical Care Medicine | DX: J98.4 Other disorders of lung (principal); J98.6 Disorders of diaphragm; G47.19 Other hypersomnia; G47.33 Obstructive sleep apnea (adult) (pediatric); R06.00 Dyspnea, unspecified; J38.01 Paralysis of vocal cords and larynx, unilateral; G56.80 Other specified mononeuropathies of unspecified upper limb; J38.00 Paralysis of vocal cords and larynx, unspecified; Z98.890 Other specified postprocedural states; Z86.79 Personal history of other diseases of the circulatory system; R06.89 Other abnormalities of breathing; J38.3 Other diseases of vocal cords; I27.20 Pulmonary hypertension, unspecified | CPT/HCPCS: 99215 ==

== ENCOUNTER 2024-06-28 08:58 | Outpatient (CLI) | payer MEDICARE, SELFPAY ==
--- NOTE | 2024-06-28 09:15 | FL_ITS ---
WS: [id number] EXAMINATION: FL sniff test [id number] ORDER DATE: 06/28/2024 9:31 AM REASON FOR EXAM: Elevated left hemidiaphragm COMPARISON: None available. FLUOROSCOPY TIME: 0min [id number] # OF SPOT FILMS: 5 FINDINGS: Images were obtained with deep inspiration and exhalation There was no significant movement noted involving the left hemidiaphragm. FL/FL sniff test [id number] IMPRESSION: Findings demonstrate an elevated hemidiaphragm without significant movement acr oss inspiration or exhalation..
== END 2024-06-28 08:59 | disposition home or self-care (01) ==
LOC: RAD 08:59
PROVIDERS: PCP Family Medicine; Visit Provider Internal Medicine Critical Care Medicine
DX: G56.80 Other specified mononeuropathies of unspecified upper limb (principal); Z98.890 Other specified postprocedural states; Z86.79 Personal history of other diseases of the circulatory system; J98.4 Other disorders of lung; J38.01 Paralysis of vocal cords and larynx, unilateral; J98.6 Disorders of diaphragm; R06.00 Dyspnea, unspecified; G47.19 Other hypersomnia; G47.33 Obstructive sleep apnea (adult) (pediatric); Z71.89 Other specified counseling
CPT/HCPCS: 76000; 99214

== ENCOUNTER 2024-07-30 13:37 | Outpatient (CLI) | payer MEDICARE, SELFPAY ==
[2024-07-30 13:52] LABS: Eosinophils # 0.2 10^3/uL (0.0-0.8); Eosinophils % 4.5 %; Hematocrit 37.8 % (37-53); Lymphocytes # 1.3 10^3/uL (0.8-4.8); Lymphocytes % 31.6 %; Mean Corpuscular HGB Conc 34.1 g/dL (30-55); Mean Corpuscular Hemoglobin 31.2 pg (27-33); Mean Corpuscular Volume 91.3 fl (82-101); Mean Platelet Volume 8.9 fL (7.4-10.4); Monocytes # 0.6 10^3/uL (0.2-0.9); Monocytes % 13.7 %; Neutrophils # 2.01 10^3/uL (1.8-7.7); Nucleated Red Blood Cells % 0 %; Platelet Count 152 10^3/cmm (157-399); Red Blood Count 4.14 10^6/uL (3.85-5.65); Red Cell Distribution Width 11.8 % (12.1-15.1); White Blood Count 4.02 10^3/uL (3.29-11.43)
== END 2024-07-30 13:38 | disposition home or self-care (01) ==
LOC: LAB 13:38
PROVIDERS: PCP Family Medicine; Visit Provider Internal Medicine Pulmonary Disease
DX: I27.20 Pulmonary hypertension, unspecified (principal)
CPT/HCPCS: 36415; 85025

== ENCOUNTER 2024-07-30 13:42 | Outpatient (CLI) | payer MEDICARE, SELFPAY ==
[2024-07-30 13:57] VITALS: PULSE 62; RESP 18; O2SAT 99
[2024-07-30] MEDS: albuterol 2.5 mg/3 mL Neb INHALATION (13:57)
== END 2024-07-30 13:43 | disposition home or self-care (01) ==
PROVIDERS: PCP Family Medicine; Visit Provider Internal Medicine Critical Care Medicine
DX: R06.00 Dyspnea, unspecified (principal); J38.01 Paralysis of vocal cords and larynx, unilateral; G56.80 Other specified mononeuropathies of unspecified upper limb; J98.4 Other disorders of lung; R94.2 Abnormal results of pulmonary function studies
CPT/HCPCS: 94060; 94726; 94729; J7613

== ENCOUNTER 2024-11-05 11:50 | Outpatient (CLI) | payer MEDICARE, SELFPAY ==
--- NOTE | 2024-11-05 11:51 | CT_ITS ---
WS: [id number] CT NECK WITH CONTRAST HISTORY: DYSPHAGIA, NODULES ON VOCAL CORDS, PARALYSIS OF VOCAL CORDS TECHNIQUE: Contiguous 2 mm axial images are performed through the neck with intravenous contrast. Sag ittal and coronal reformats are also submitted. All CT scans at [facility] use at least one o f these dose optimization techniques: automated exposure control; mA and/or kV adjustment per patient size (includes targeted exams where dose is matched to clinical indication); or iterative reconstruc tion. CONTRAST: CONTRAST: Omnipaque 350; 100 mL IV. DLP: 165.00 mGy.cm COMPARISON: None available. Asymmetrically enlarged LEFT pyriform sinus with a slightly medially positioned LEFT aryepiglottic fo ld which also appears slightly thickened. There is slightly dilated LEFT laryngeal ventricle. These f indings can be seen with LEFT vocal cord paralysis. There is a soft tissue mass with enhancement in the LEFT preepiglottic space extending over a width o f 1.5 cm x 0.4 cm AP. Mass extends to abut the LEFT pharyngoepiglottic fold. Bilateral level 2 lymph nodes. The largest lymph node on the LEFT is indeterminate at 11 mm. No osseous abnormalities. Visualized portions of the skull base demonstrate no abnormalities. Orbits and globes are within norm al limits. No soft tissue masses. Visualized paranasal sinuses and mastoid air cells are normal. Lung apices are clear. CT/CT neck w con* [id number] IMPRESSION: 1. LEFT vocal cord paralysis. No associated mass identified with vocal cord pa ralysis. 2. Enhancing soft tissue mass in the LEFT preepiglottic space measures 1.5 x 0 .5 cm. Mass extends to about the LEFT pharyngoepiglottic fold. Recommend direct visualization. 3. Indeterminate level 2 cervical chain lymph nodes. Largest lymph node on the LEFT is 11 mm.
[2024-11-05] MEDS: iohexol 350 mg/mL 500 mL Btl (per mL) IV (12:09)
== END 2024-11-05 11:51 | disposition home or self-care (01) ==
LOC: RAD 11:51
PROVIDERS: PCP Family Medicine; Visit Provider Otolaryngology
DX: R22.0 Localized swelling, mass and lump, head (principal); R13.10 Dysphagia, unspecified; J38.2 Nodules of vocal cords; J38.01 Paralysis of vocal cords and larynx, unilateral
CPT/HCPCS: 70491

== ENCOUNTER 2024-11-21 15:14 | Outpatient (CLI) | payer MEDICARE, SELFPAY ==
--- NOTE | 2024-11-21 15:15 | MR_ITS ---
WS: [id number] MRI NECK WITH AND WITHOUT CONTRAST. COMPARISON: Neck CT 11/05/2024 Multiplanar, multisequence imaging is performed with and without contrast. MultiHance 19 mL. Signal abnormality involving the LEFT vocal cord is of increased signal on the T2 sequence measures 8 x 8 mm. There is mild enhancement on the postcontrast imaging. There is also thickening of the LEFT aryepiglottic fold. Reidentified is the LEFT vocal cord paralysis. Previously described soft tissue mass in the preepiglottic space does not significantly enhance. Ther e is slight fullness at this location but no enhancement. Tongue base and tonsils are negative. There is no enhancement. Submandibular glands and parotid gland s are negative. Small cervical chain lymph nodes. No adenopathy is identified. Moderate mucoperiosteal thickening in the maxillary sinuses. MR/MR orbit face neck wo/w* [id number] IMPRESSION: 1. Signal changes and abnormal thickening of the LEFT aryepiglottic fold with mild enhancement. Area of enhancement measures 8 x 8 mm associated with the LEF T vocal cord. Area of enhancement is only minimal. Direct visualization and bio psy recommended. 2. The previously described soft tissue in the preepiglottic space does not si gnificantly enhance and appears less concerning by MRI. 3. No adenopathy.
[2024-11-21] MEDS: gadobenate dimeglumine 20 mL vial IV (16:03)
== END 2024-11-21 15:15 | disposition home or self-care (01) ==
PROVIDERS: PCP Family Medicine; Visit Provider Otolaryngology
DX: R13.10 Dysphagia, unspecified (principal); J38.01 Paralysis of vocal cords and larynx, unilateral; R93.89 Abnormal findings on diagnostic imaging of other specified body structures; R59.0 Localized enlarged lymph nodes
CPT/HCPCS: 70543

== ENCOUNTER 2024-11-29 08:23 | Outpatient (CLI) | payer MEDICARE, SELFPAY ==
--- NOTE | 2024-11-29 16:38 | FL_ITS ---
MA barium swallow [id number] REASON FOR EXAM: DYSPHAGIA FLUOROSCOPY TIME: 1min [id number] # OF SPOT FILMS: Multiple TECHNIQUE: Patient was examined in the upright AP and lateral, prone AZUL, and supine LPO positions. Swallowing of barium was monitored fluoroscopically and recorded with multiple spot films. FINDINGS: Cervical esophagus demonstrated normal motility and anatomy. No diverticulum, cricopharyngeal hypertrophy, or aspiration. The distal esophagus demonstrated infrequent periods of lower esophageal sphincter spasm and loss of primary peristaltic wave with delayed emptying of the esophagus. No significant hiatal hernia or reflux was identified. No fixed narrowing of the distal esophagus demonstrated. IMPRESSION: Mild intermittent esophageal dysmotility as above. MTDD
== END 2024-11-29 08:24 | disposition home or self-care (01) ==
LOC: RAD 08:24
PROVIDERS: PCP Family Medicine; Visit Provider Otolaryngology
DX: R13.10 Dysphagia, unspecified (principal); J38.2 Nodules of vocal cords; J38.01 Paralysis of vocal cords and larynx, unilateral; K22.4 Dyskinesia of esophagus
CPT/HCPCS: 74220

== ENCOUNTER 2024-12-11 10:29 | Outpatient (CLI) | payer MEDICARE, SELFPAY ==
--- NOTE | 2024-12-11 10:33 | FL_ITS ---
WS: [id number] Exam: FL barium swallow modifd [id number] Date/Time of Exam: 12/11/2024 10:42 AM Reason For Exam: Other dysphagia Fluoroscopy time: 2min [id number] minutes # of spot films: Modified barium swallow test was performed in conjunction with the speech therapy service. The patient experienced some difficulty swallowing pudding consistency barium mixture foodstuffs spec ifically elevating the tongue to the hard palate to initiate swallowing. The patient swallowed solid food and thin liquid barium without aspiration or penetration. The patient swallowed a barium tablet without difficulty or complication. FL/FL barium swallow modifd [id number] IMPRESSION: 1. No aspiration or penetration. 2. The patient experienced moderate difficulty swallowing pudding consistency b arium mixture foodstuffs. See above discussion. A separate report and recommendations will follow from the speech therapy servi ce.
== END 2024-12-11 10:30 | disposition home or self-care (01) ==
LOC: RAD 10:30
PROVIDERS: PCP Family Medicine; Visit Provider Otolaryngology
DX: R13.10 Dysphagia, unspecified (principal); J38.01 Paralysis of vocal cords and larynx, unilateral; R93.89 Abnormal findings on diagnostic imaging of other specified body structures
CPT/HCPCS: 74230; 92611